=== PATIENT | male | born 1995 | race Caucasian/White ===

== ENCOUNTER 2021-02-21 20:30 | Emergency (ER) | payer BC ==
[~2021-02-21] VITALS: Ht 170.2 cm; Wt 72.6 kg
[2021-02-21 20:55] VITALS: BP_SYST 127
== END 2021-02-21 21:50 | disposition left against medical advice (07) ==
LOC: SED 20:30
DX: S01.81XA Laceration without foreign body of other part of head, initial encounter (principal); W45.8XXA Other foreign body or object entering through skin, initial encounter; Y93.89 Activity, other specified; Y92.89 Other specified places as the place of occurrence of the external cause; Y99.8 Other external cause status; Z53.21 Procedure and treatment not carried out due to patient leaving prior to being seen by health care provider